=== PATIENT | female | born 1965 | race Caucasian/White ===

== ENCOUNTER → 2024-05-29 08:39 | Outpatient (REF) | payer BC, SELFPAY | LOC: RCS 08:39 | PROVIDERS: ATTENDING PHYSICIAN Hospitalist | DX: R00.2 Palpitations (principal) | CPT/HCPCS: 93225; 93226 ==

== ENCOUNTER → 2024-06-15 08:23 | Outpatient (REF) | payer BC, SELFPAY | LOC: HWWDC 08:23 | PROVIDERS: ATTENDING PHYSICIAN Hospitalist | DX: Z12.31 Encounter for screening mammogram for malignant neoplasm of breast (principal); Z00.00 Encounter for general adult medical examination without abnormal findings | CPT/HCPCS: 77063; 77067 ==

== ENCOUNTER → 2024-06-22 08:58 | Outpatient (REF) | payer BC, SELFPAY | LOC: WDC 08:58 | PROVIDERS: ATTENDING PHYSICIAN Hospitalist | DX: R92.8 Other abnormal and inconclusive findings on diagnostic imaging of breast (principal) | CPT/HCPCS: 76642 ==

== ENCOUNTER → 2024-07-19 06:26 | Outpatient (REF) | payer BC, SELFPAY ==
[2024-07-19 07:25] LABS: % Basophils 0.8 % (0-2); % Eosinophils 6.2 % (0-6); % Immature Granulocytes 0.4 % (0-0.5); % Monocytes 8.2 % (1.7-9.3); % Neutrophils 53.4 % (42.2-75.2); Absolute Basophils 0.1 10^3/uL (0-0.2); Absolute Eosinophils 0.5 10^3/uL (0-0.7); Absolute Lymphocytes 2.4 10^3/uL (1.2-3.4); Absolute Monocytes 0.6 10^3/uL (0.1-0.6); Absolute Neutrophils 4.1 10^3/uL (1.4-6.5); Hematocrit 46.5 % (37.0-47.0); Hemoglobin 15.6 g/dL (12.0-16.0); Mean Corp Hgb Conc. 33.5 g/dL (33.0-37.0); Mean Corpuscular Hgb 29.2 pg (27.0-31.0); Mean Corpuscular Volume 86.9 fL (81.0-99.0); Mean Platelet Volume 9.8 fL (7.4-10.4); Nucleated Red Blood Cells % 0 %; Platelet Count 270 10^3/uL (130-400); Red Blood Cell Count 5.35 10^6/uL (4.20-5.40); Red Cell Dist. Width 13.5 % (11.5-14.5); White Blood Cell Count 7.7 10^3/uL (4.8-10.8)
[2024-07-19 08:08] LABS: ALT (SGPT) 21 U/L (0-35); AST (SGOT) 20 U/L (14-36); Albumin 4.4 g/dl (3.5-5.0); Alkaline Phosphatase 76 U/L (38-126); Blood Urea Nitrogen 19 mg/dl (7-17); Calcium 9.7 mg/dl (8.4-10.2); Carbon Dioxide 30 mmol/L (22-30); Chloride 105 mmol/L (98-107); Glucose 87 mg/dl (70-99); HDL Cholesterol 56 mg/dl; LDL Cholesterol, Calculated 140 mg/dl; Magnesium 2.1 mg/dl (1.6-2.3); Potassium 4.6 mmol/L (3.5-5.1); Sodium 142 mmol/L (135-145); Total Bilirubin 0.6 mg/dl (0.2-1.3); Total Cholesterol 262 mg/dl (50-199); Total Protein 7.2 g/dl (6.3-8.2); Triglyceride 331 mg/dl (10-149); Uric Acid 6.5 mg/dl (2.5-6.2); Very Low Density Lipoprotein 66 mg/dl (0-30); eGFR > 60.00
[2024-07-19 08:22] LABS: Free T4 1.13 ng/dl (0.78-2.19)
[2024-07-19 08:36] LABS: TSH 2.13 uIU/ml (0.47-4.68)
[2024-07-19 08:52] LABS: Glycohemoglobin (HgbA1c) 5.5 % (4.0-5.6)
== END ==
LOC: REG 06:26
PROVIDERS: ATTENDING PHYSICIAN Internal Medicine; FAMILY PHYSICIAN Hospitalist
DX: Z00.00 Encounter for general adult medical examination without abnormal findings (principal); E78.2 Mixed hyperlipidemia; R73.03 Prediabetes; E88.810 Metabolic syndrome; M17.0 Bilateral primary osteoarthritis of knee; E78.5 Hyperlipidemia, unspecified; R00.2 Palpitations
CPT/HCPCS: 36415; 80053; 80061; 83036; 83735; 84439; 84443; 84550; 85025

== ENCOUNTER → 2024-08-02 11:02 | Outpatient (REF) | payer BC, SELFPAY | LOC: CPAP 11:02 | PROVIDERS: ATTENDING PHYSICIAN Advanced Practice Midwife | DX: Z01.419 Encounter for gynecological examination (general) (routine) without abnormal findings (principal); Z11.51 Encounter for screening for human papillomavirus (HPV) | CPT/HCPCS: 87624 ==

== ENCOUNTER → 2025-02-15 09:12 | Outpatient (REF) | payer BC, SELFPAY | LOC: PAVMRI 09:12 | PROVIDERS: ATTENDING PHYSICIAN Hospitalist | DX: Z86.018 Personal history of other benign neoplasm (principal) | CPT/HCPCS: 70553; A9585 ==